=== PATIENT | female | born 1985 | race Caucasian/White ===

== ENCOUNTER → 2025-01-30 13:29 | Outpatient (CLI) | payer BC, SELFPAY ==
--- NOTE | 2025-01-30 13:30 | DI.MG.S_ITS ---
MM screening mammo implant BI: 01/30/2025. BI-RADS: 2 CLINICAL: 40-year old female for bilateral screening mammogram. Tyrer-Cuzick lifetime risk of 9.8%. No personal or first-degree family history of breast cancer. The patient has bilateral implants. PRIOR EXAMS: None. This is a baseline mammogram. MAMMOGRAPHY TECHNIQUE: 2D and 3D (tomosynthesis) digital mammographic views obtained, with additional images as needed for full coverage. Current study was also evaluated with a Computer Aided Detection (CAD) system. DENSITY C. The breasts are heterogeneously dense, which may obscure small masses. IMPLANTS Breast implants present. MAMMOGRAPHY FINDINGS Bilateral: There are no suspicious masses, calcifications, or other findings in the breast. IMPRESSION: * No evidence of malignancy with benign findings. RECOMMENDATIONS Bilateral * Annual screening mammography. OVERALL ASSESSMENT CATEGORY BI-RADS-2: Benign. [employer] recommends annual screening mammography beginning at age 40 for women with average risk of breast cancer. ELECTRONICALLY SIGNED: Rita Tompkins M.D. on 02/02/2025 at 02:00:13 AM PT Interpreting Station ID: [id number]
--- NOTE | 2025-01-30 13:30 | DI.US.S_ITS ---
PROCEDURE: US PELVIC COMPLETE INDICATIONS: screening and menorrhagia TECHNIQUE: Real-time scanning was performed of the pelvic organs, with image documentation. Additional endovaginal scanning was necessary due to incomplete visualization of the adnexal and endometrial structures by transabdominal scanning. COMPARISON: None. FINDINGS: Uterus: Uterus is anteverted and normal in size at 11.3 x 5.0 x 6.8 cm. The myometrium is heterogeneous. The endometrium measures 15 mm combined thickness. Ovaries: The right ovary measures 2.9 x 2.6 x 2.6 cm, with a calculated ovarian volume of 10.2 cc. The left ovary measures 2.1 x 2.3 x 1.5 cm, with a calculated ovarian volume of 3.5 cc. The ovaries have a normal sonographic appearance. Less than 12 follicles can be seen in each ovary. No adnexal masses are seen. Other: No pathologic free abdominal or pelvic fluid. Multiple prominent and dilated uterine vessels more pronounced on the right. IMPRESSION: 1. Pelvic ultrasound without acute sonographic abnormalities. 2. 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 We strive to produce accurate, complete, and clear reports of imaging services. To assist us in improving patient care, this report was composed using standard report templates and voice recognition software. Therefore, it may contain abnormal punctuation, insertions and/or omissions. Occasional wrong-word or sound-alike substitutions may occur. Though we review the report and make efforts to correct it, we do recommend that the report be read carefully in proper context to recognize any text inaccuracies. Dictated by: Jose Daniel Kaur M.D. on 01/30/2025 at 23:20 Approved by: Jose Daniel Kaur M.D. on 01/30/2025 at 23:23
== END ==
PROVIDERS: PCP Family Medicine; Referring Provider Family Medicine; Visit Provider Family Medicine
DX: Z12.31 Encounter for screening mammogram for malignant neoplasm of breast (principal); Z98.82 Breast implant status; R92.333 Mammographic heterogeneous density, bilateral breasts; N92.0 Excessive and frequent menstruation with regular cycle
CPT/HCPCS: 76830; 76856; 77063; 77067

== ENCOUNTER → 2025-09-23 12:00 | Outpatient (CLI) | payer BC, SELFPAY ==
[2025-08-27 11:34] VITALS: BMI 19.8
[2025-09-23 20:39] LABS: Appearance Urine UA CLEAR; Bilirubin Urine UA NEGATIVE (NEGATIVE); Color Urine UA YELLOW; Glucose Urine UA NEGATIVE (Negative); Ketones Urine UA NEGATIVE (NEGATIVE); Leukocyte Esterase Urine UA NEGATIVE (NEGATIVE); Nitrite Urine UA NEGATIVE (Negative); Occult Blood Urine UA 3+ (Negative); Protein Urine UA 2+ (Negative); Specific Gravity Urine UA 1.020 (1.000-1.035); Urobilinogen Urine UA 0.2 E.U./dL (0.2)
[2025-09-23 20:40] LABS: pH Urine UA 7.5 (4.5-8.0)
== END ==
PROVIDERS: PCP Family Medicine; Visit Provider Obstetrics & Gynecology
DX: R30.0 Dysuria (principal)
CPT/HCPCS: 81003; 81015; 87086